=== PATIENT | female | born 1960 | race Asian ===

== ENCOUNTER 2021-12-06 22:59 | Emergency (ER) | payer BC ==
[~2021-12-06] VITALS: Ht 157.5 cm; Wt 54.4 kg
--- NOTE | 2021-12-06 23:20 | NUR ---
61 Y.O. F BIBA FOR GENERAL WEAKNESS. COVID POS AT HOME. STATING AT 97% ON RA. PT SAID SHE HAD FEVER AND CHILLS AT HOME. DENIES N/V/D, CHEST PAIN AND SOB. VITALS WNL, SKIN INTACT, A&OX4, STAEDY GAIT, AND /GI NORMAL. HX: HEART ATTACK 2019, RHEMATOID ARTHRITIS ALLERGIES: PENICILLIN
[2021-12-06] MEDS ORDERED: ACETAMINOPHEN 325 MG TAB PO ONE (23:50)
[2021-12-06 23:59] LABS: BASOPHILS # (AUTO) 0.1 K/uL (0.00-0.22); BASOPHILS % (AUTO) 1.3 % (0.0-2.0); HEMATOCRIT 41.1 % (36-48); HEMOGLOBIN 13.7 g/dL (12.0-16.0); LYMPHOCYTES # (AUTO) 0.8 K/uL (2.5-16.5); LYMPHOCYTES % (AUTO) 16.6 % (20.5-51.1); MEAN CORPUSCULAR HEMOGLOBIN 30 pg (27-31); MEAN CORPUSCULAR HGB CONC 33 g/dL (33-37); MEAN CORPUSCULAR VOLUME 90.3 fL (80-94); MONOCYTES # (AUTO) 0.3 K/uL (0.8-1.0); MONOCYTES % (AUTO) 5.7 % (1.7-9.3); NEUTROPHILS # (AUTO) 3.8 K/uL (1.8-7.7); NEUTROPHILS % (AUTO) 76.4 % (42.2-75.2); PLATELET COUNT (AUTO) 178 K/uL (140-450); RED BLOOD CELL COUNT(AUTO) 4.55 MIL/uL (4.20-5.40); RED CELL DISTRIBUTION WIDTH 14.3 % (11.6-13.7)
[2021-12-07 00:05] VITALS: BP 115/64
[2021-12-07 00:19] LABS: ALBUMIN 3.3 g/dL (3.4-5.0); ANION GAP 8.9 (8-16); CARBON DIOXIDE 25.5 mmol/L (21-32); CREATININE 0.9 mg/dL (0.6-1.3); POTASSIUM 4.4 mmol/L (3.5-5.1); TOTAL BILIRUBIN 0.2 mg/dL (0.0-1.0)
[2021-12-07] MEDS ORDERED: NACL 0.9% 1,000 ML IV ONE ×2 (01:00→02:25)
[2021-12-07] MEDS ORDERED: ACETAMINOPHEN 325 MG TAB ONE ×2 (01:06→01:22)
[2021-12-07] MEDS ORDERED: ONDANSETRON 4 MG/2 ML VIAL IVP ONE (01:15)
[2021-12-07] MEDS ORDERED: KETOROLAC 15 MG/ML VIAL IVP ONE (01:15)
[2021-12-07 02:03] LABS: APPEARANCE,URINE CLEAR (CLEAR); BILIRUBIN,URINE NEGATIVE (NEGATIVE); BLOOD, URINE NEGATIVE (NEGATIVE); COLOR,URINE YELLOW (YELLOW); LEUKOCYTE ESTERASE ,URINE NEGATIVE (NEGATIVE); NITRITE, URINE NEGATIVE (NEGATIVE); UGLUCOSE NEGATIVE (NEGATIVE)
[2021-12-07 05:25] VITALS: BP 89/54
--- NOTE | 2021-12-07 05:41 | NUR ---
Patient does not wish to proceed with medical care recommended by DR. RM. Patient given information related to possible complications, up to and including , which could occur as a result of leaving hospital at this time. Patient verbalizes understanding of risks involved leaving against medical advice. Patient has signed AMA form.
== END 2021-12-07 05:25 | disposition home or self-care (01) ==
LOC: MED 22:59
DX: U07.1 COVID-19 (principal); E87.1 Hypo-osmolality and hyponatremia; R50.9 Fever, unspecified; M79.10 Myalgia, unspecified site; F17.200 Nicotine dependence, unspecified, uncomplicated
CPT/HCPCS: 36415; 71045; 80053; 81003; 83880; 84484; 85025; 87426; 93005; 96361; 96374; 96375; 99284; J1885; J2405; J7030